=== PATIENT | female | born 1960 | race Caucasian/White ===

== ENCOUNTER 2023-06-06 10:31 | Outpatient (CLI) | payer MEDICAID ==
--- NOTE | 2023-06-06 13:29 | XRAY Report ---
PROCEDURE: Shoulder 2+V LT INDICATIONS: PAIN IN LEFT SHOULDER TECHNIQUE: 3 views of the shoulder were acquired. COMPARISON: None. FINDINGS: Bones: No fractures or dislocations. No suspicious bony lesions. Visualized ribs appear intact. Severe acromioclavicular as well as moderate glenohumeral degenerative narrowing. Mild deformity is p resent in the humeral shaft. In addition, there is a mildly displaced fracture at the humeral head. Soft tissues: No suspicious soft tissue calcifications. The visualized lungs are within normal limi ts. IMPRESSION: Mildly displaced humeral head fracture without dislocation. Partially visualized deformity of the mid humerus suspected to represent prior fracture. However, sup erimposed subacute fracture cannot be excluded as it is not seen in mesentery. Humeral views are bob mmended. Reviewed by: Rasheeda Islas MD on 06/06/2023 1:27 PM PST Approved by: Rasheeda Islas MD on 06/06/2023 1:27 PM [facility] Station ID: [id number]
== END 2023-06-06 10:32 | disposition home or self-care (01) ==
LOC: DI.N 10:31
PROVIDERS: ATTEND Specialist
DX: S42.292A Other displaced fracture of upper end of left humerus, initial encounter for closed fracture (principal)

== ENCOUNTER 2023-07-05 08:00 | Outpatient (CLI) | payer MEDICAID ==
--- NOTE | 2023-07-05 19:50 | XRAY Report ---
PROCEDURE: Shoulder 3 View LT INDICATIONS: LEFT SHOULDER PAIN TECHNIQUE: 3 views of the shoulder were acquired. COMPARISON: 06/06/2023. FINDINGS: Bones: Chronic-appearing deformity involving proximal humeral shaft/surgical neck is again seen. Old healed fracture involving the mid humeral shaft is also noted. Moderate acromioclavicular joint and glenohumeral joint osteoarthritic changes are seen. No new fracture or dislocation. No suspicious bon y lesions. Visualized ribs appear intact. Soft tissues: No suspicious soft tissue calcifications. The visualized lungs are within normal limi ts. IMPRESSION: Stable appearance of old healed proximal and mid humeral shaft fractures as above. No acute fracture or dislocation. 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 Reviewed by: Manuel Grimaldo MD on 07/05/2023 7:49 PM PDT Approved by: Manuel Grimaldo MD on 07/05/2023 7:49 PM PDT Station ID: [id number]
== END 2023-07-05 23:59 | disposition home or self-care (01) ==
LOC: DI.WOS 08:00
PROVIDERS: ATTEND Orthopaedic Surgery
DX: M19.012 Primary osteoarthritis, left shoulder (principal)

== ENCOUNTER 2023-11-02 15:30 | Outpatient (CLI) | payer MEDICAID ==
--- NOTE | 2023-11-02 17:31 | XRAY Report ---
PROCEDURE: Wrist 3+V LT INDICATIONS: WRIST SPRAIN, LEFT TECHNIQUE: 4 views of the wrist were acquired. COMPARISON: None. FINDINGS: Bones: Impacted fracture involving distal radius is seen with minimal dorsal angulation and displace ment of fracture site. No other fracture or dislocation. Osteoarthritic changes are noted throughout wrist joints. No suspicious bony lesions. Soft tissues: No suspicious soft tissue calcifications or masses. IMPRESSION: Acute impacted and minimally displaced distal radial fracture as above. Reviewed by: Manuel Hopper MD on 11/02/2023 5:30 PM PDT Approved by: Manuel Hopper MD on 11/02/2023 5:30 PM PDT Station ID: [id number]
== END 2023-11-02 15:45 | disposition home or self-care (01) ==
LOC: DI.N 15:30
PROVIDERS: ATTEND Family Medicine
DX: S52.502A Unspecified fracture of the lower end of left radius, initial encounter for closed fracture (principal); M19.032 Primary osteoarthritis, left wrist

== ENCOUNTER 2023-11-13 14:22 | Outpatient (CLI) | payer MEDICAID | END 2023-11-13 23:59 | disposition critical access hospital (66) | LOC: EMS 14:22 | DX: M54.50 Low back pain, unspecified (principal); M25.551 Pain in right hip; M25.552 Pain in left hip; W18.30XA Fall on same level, unspecified, initial encounter; R53.1 Weakness; Z96.642 Presence of left artificial hip joint ==

== ENCOUNTER 2023-11-13 15:08 | Observation (INO) | payer MEDICAID ==
--- NOTE | 2023-11-13 15:57 | ED Physician Documentation ---
History of Present Illness - Stated complaint Stated Complaint: FALL/ARM AND TAILBONE PX - Chief complaint Chief Complaint: Trauma Ch/Bk - Additonal information Additional information: Per son in law she was walking to the bathroom and fell on her left side. She was reporting persistent low back pain today, but today was unable to ambulate. Fracture to left wrist last week with distal radius fracture. This imaging was obtained when they took her to urgent care. Patient was following up with orthopedics in outpatient setting. Son-in-law notes patient has been living with him after she fell a year ago and fractured her left hip then went to rehab facility and now currently lives with him at his house. He notes he is unable to come to the emergency department. Patient has history of dementia that they are currently working up as well as history of stroke while she was in the rehab facility. Patient is not on any blood thinners. SHe fell one year ago and fractured her left hip went to rehab facility. PD PAST MEDICAL HISTORY - Past Medical History Past Medical History: Yes Cardiovascular: Hypertension - Past Surgical History Past Surgical History: Yes Ortho: Hip replacement - Allergies Allergies/Adverse Reactions: Allergies Allergy/AdvReac Type Severity Reaction Status Date / Time No Known Drug Allergies Allergy Verified 11/13/23 15:19 - Social History Does the pt smoke?: No Smoking Status: Never smoker Does the pt drink ETOH?: No Does the pt have substance abuse?: No - Immunizations Immunizations are current?: Yes PD ED PE NORMAL - Vitals Vital signs reviewed: Yes - General General: No acute distress - HEENT HEENT: Atraumatic, PERRL, Ears normal, Moist mucous membranes - Neck Neck: Supple, no meningeal sign, C-Spine cleared by NEXUS criteria - Cardiac Cardiac: RRR, No murmur, No gallop, No rub - Respiratory Respiratory: No respiratory distress, Clear bilaterally - Abdomen Abdomen: Normal bowel sounds - Back Back: Other (Reproducible lumbar and sacral spinous process tenderness no obvious deformity or appreciable bruising or swelling noted.) - Derm Derm: Normal color - Extremities Extremities: No deformity, Other (Left wrist held in Velcro wrist splint additionally pain on palpation of left humerus but no obvious bruising or deformity or swelling noted. Additionally left lateral hip tenderness flexion of left knee intact.sensation intact distally no obvious swelling no obvious deformity passive range of mohamud) - Neuro Neuro: No sensory deficit Eye Opening: Spontaneous Motor: Obeys Commands Verbal: Confused GCS Score: 14 Results - Vitals Vitals: Vital Signs - 24 hr 11/13/23 11/13/23 11/13/23 15:23 15:30 15:33 Temperature 36.2 C L Heart Rate 66 66 66 Respiratory 16 23 24 Rate Blood Pressure 117/73 131/78 H 131/78 H O2 Saturation 97 95 96 11/13/23 11/13/23 17:30 19:00 Temperature Heart Rate 71 68 Respiratory 16 17 Rate Blood Pressure 169/109 H 165/105 H O2 Saturation 96 97 Oxygen O2 Source Room air PD Medical Decision Making - ED course Complexity details: reviewed old records, reviewed results, re-evaluated patient ED course: Patient is a 63-year-old female presenting to the emergency department with persistent low back pain and difficulty walking after she had a fall at home last night patient was at son-in-law's house has not been taking care of her after being discharged from rehab facility after stroke and left hip arthroplasty. Patient reports pain to left back left hip and left humerus patient did sustain fracture to left radius after a fall about a week ago. X-ray images and CT head obtained here in the emergency department x-ray of left humerus does show partially healing humerus shaft and head fracture additionally no acute fracture to left hip or obvious deformity. X-ray of lumbar and sacrum shows fracture to T11 but no other obvious deformity. Patient remains neurovascularly intact on reevaluation to lower extremities. Patient ambulated here in the emergency department and required assistance and had severe bout of pain after walking 6 steps and after receiving [place] here in the emergency department. Given the symptoms patient does not seem safe to be discharged home. CT head did show no acute findings. Discussed with orthopedics at [facility] [address] Borden and she recommends sling she does not consult on spine fractures and notes she did not take call at our hospital. Discussed with hospitalist who is agreeable with admission left arm in sling and Velcro splint from history of radial fracture and humerus fracture patient's son-in-law called and updated. Patient will be monitored overnight in the hospital. Departure - Departure Disposition: 67 [facility] DC/Xfer Clinical Impression: Thoracic compression fracture, Humeral shaft fracture, Left hip pain Discharge Date/Time: 11/13/23 21:19
--- NOTE | 2023-11-13 16:58 | XRAY Report ---
PROCEDURE: Lumbar Spine 2-3V INDICATIONS: lower back pain from fall TECHNIQUE: 3 views of the lumbar spine were acquired. COMPARISON: None. FINDINGS: Surgical change: Cholecystectomy. Left hip ORIF. Bones: 5 [id number] vertebrae are present. There is normal bony alignment. Age-indeterminate co mpression deformity of the T11 vertebral body. Soft tissues: Overlying bowel gas pattern is normal. No suspicious soft tissue calcifications. IMPRESSION: Age-indeterminate compression deformity of the T11 vertebral body. Reviewed by: Derek Villalobos MD on 11/13/2023 4:57 PM PDT Approved by: Derek Villalobos MD on 11/13/2023 4:57 PM PDT Station ID: [id number]
--- NOTE | 2023-11-13 16:58 | XRAY Report ---
PROCEDURE: Sacrum/Coccyx INDICATIONS: fall back pain TECHNIQUE: 2 views of the sacrum and coccyx acquired. COMPARISON: None. FINDINGS: Bones: No fractures or dislocations. No suspicious bony lesions. Left total hip ORIF. Soft tissues: Visualized bowel gas pattern is normal. No suspicious soft tissue densities. IMPRESSION: No acute bony abnormality. Reviewed by: Derek Villalobos MD on 11/13/2023 4:57 PM PDT Approved by: Derek Villalobos MD on 11/13/2023 4:57 PM PDT Station ID: [id number]
[2023-11-13] MEDS: HYDROcod/ACETAM 5/325 MG TABLET PO STA (17:25)
--- NOTE | 2023-11-13 18:21 | CT Report ---
PROCEDURE: Head WO INDICATIONS: fall at home TECHNIQUE: Noncontrast 4.5 mm thick angled axial sections acquired from the foramen magnum to the vertex. For r adiation dose reduction, the following was used: automated exposure control, adjustment of mA and/or kV according to patient size. COMPARISON: None. FINDINGS: Image quality: Excellent. CSF spaces: Basal cisterns are patent. No extra-axial fluid collections. Ventricles are normal in size and shape. Brain: No midline shift. No intracranial masses or hemorrhage. Tolbert-white matter interface is norm al. Skull and face: Calvarium and visualized facial bones are intact, without suspicious lesions. Sinuses: Visualized sinuses and mastoids are clear. IMPRESSION: No acute intracranial pathology. Reviewed by: Derek Villalobos MD on 11/13/2023 6:20 PM PDT Approved by: Derek Villalobos MD on 11/13/2023 6:20 PM PDT Station ID: [id number]
--- NOTE | 2023-11-13 18:28 | XRAY Report ---
PROCEDURE: Shoulder 2+V LT INDICATIONS: left shoulder pain TECHNIQUE: 3 views of the shoulder were acquired. COMPARISON: 07/05/2023, 06/06/2023 FINDINGS: Bones: No acute fractures or dislocations. No suspicious bony lesions. Visualized ribs appear inta ct. Glenohumeral and acromioclavicular joint space narrowing with associated osteophytosis. Healing mid humerus fracture. Suspect a remote fracture of the humeral head. Soft tissues: No suspicious soft tissue calcifications. The visualized lungs are within normal limi ts. IMPRESSION: No acute bony abnormality. Healing mid humerus fracture deformity. Reviewed by: Derek Villalobos MD on 11/13/2023 6:27 PM PDT Approved by: Derek Villalobos MD on 11/13/2023 6:27 PM PDT Station ID: [id number]
--- NOTE | 2023-11-13 18:29 | XRAY Report ---
PROCEDURE: Hip w/Pelvis 2-3V LT INDICATIONS: hip pain TECHNIQUE: 3 views of the hip were acquired. COMPARISON: None. FINDINGS: Bones: Prior left femur ORIF. Suspected healing fracture of the proximal shaft. No acute, displaced fractures. Soft tissues: No suspicious soft tissue calcifications or masses. IMPRESSION: No acute, displaced fractures. Prior left femur ORIF, with a healing proximal shaft fracture. Reviewed by: Derek Villalobos MD on 11/13/2023 6:28 PM PDT Approved by: Derek Villalobos MD on 11/13/2023 6:28 PM PDT Station ID: [id number]
--- NOTE | 2023-11-13 19:54 | HISTORY & PHYSICAL EXAMINATION ---
Chief Complaint - Chief Complaint Chief Complaint: LBP History of Present Illness - Admitted From Admitted From:: ER - History Obtained From Records Reviewed: Yes History obtained from: Pt, staff, chart Exam Limitations: Virtual exam - History of Present Illness HPI Comment/Other: H&P was conducted via video remotely, using Access Cart. Patient is in [place]. Physician is in [place]. No one is at bedside. Pt has poor memory. History from pt, staff, chart. 63 yo F with PMH of HTN, CVA, memory deficits presented to the ER with c/o 1 day h/o LBP s/p GLF. [place] Pt has had frequent falls. Last year, she fell and fractured her hip, had ORIF, then went to Rehab. Pt was seen last week after a fall and found to have a fracture L wrist. Pt says that she uses a walker at home. Unclear whether she is still using walker with L wrist fracture. Unclear if she was seen for L Humeral fracture, or not. Last night, she got up to go to the bathroom, fell, and had back pain. Today, she was unable to ambulate d/t LBP. Pt denies F/c, cough, SOB, CP, abdo pain, dysuria, BM or urinary changes. In the ER, LSpine Xray: compression fracture T11 vertebra L Hip Xray: +ORIF; no acute injury L Shoulder Xray: healing mid-humeral fracture CT Head: NAD No labs done. Pt was given [place] in the ER. ER Provider D/W Orthopedics at [place] [place] Dr[facility] Borden and she recommends sling she does not consult on spine fractures and notes she did not take call at our hospital. History - Past Medical History Cardiovascular: reports: Hypertension - Past Surgical History Ortho: reports: Hip replacement Meds/Allgy - Allergies Allergies/Adverse Reactions: Allergies Allergy/AdvReac Type Severity Reaction Status Date / Time No Known Drug Allergies Allergy Verified 11/13/23 15:19 Review of Systems - All Other Systems All Other Systems: reports: Reviewed and negative Exam - Vital Signs Reviewed Vital Signs: Yes Vital Signs: Vital Signs x48h Temp Pulse Resp BP Pulse Ox 11/13/23 19:00 68 17 165/105 H 97 11/13/23 17:30 71 16 169/109 H 96 11/13/23 15:33 66 24 131/78 H 96 11/13/23 15:30 66 23 131/78 H 95 11/13/23 15:23 36.2 C L 66 16 117/73 97 - Physical Exam General Appearance: positive: No acute distress, Alert Eyes Bilateral: positive: EOMI, No scleral icterus Respiratory: positive: Other (Access cart stethoscope not working; per ER Provider: CTA B/L) Cardiovascular: positive: Other (Access cart stethoscope not working; per ER Provider: RRR, no murmurs) Abdomen: positive: Other (per ER Provider: non-distended, NT, Soft) Back: positive: Other (+TTP) Extremities: positive: Other (per ER Provider: moves all extrem, no edema, +pain L wrist, L shoulder) Neurologic/Psychiatric: positive: Oriented x3, Mood/affect nml, Other (Ox3, but +decreased short-term memory) Conclusion/Plan - Problem List (1) Compression fracture of T11 vertebra Conclusion/Plan: T11 Compression Fracture Intractable pain Decreased ability to walk d/t pain S/P GLF Frequent Falls -uses walker at baseline -LSpine Xray: compression fracture T11 vertebra -L Hip Xray: +ORIF; no acute injury -CT Head: NAD -No labs done. -Pt was given [place] in the ER. -admit to Obs/ Med Surg -labs ordered -pain control -PT/OT eval -SW consult; pt may need SNF placement. L Humeral Fracture -L Shoulder Xray: healing mid-humeral fracture -ER Provider D/W Orthopedics at [place] Dr[facility] Borden and she recommends sling she does not consult on spine fractures and notes she did not take call at our hospital. -sling placement ordered in ER. L Wrist Fracture -Recent L wrist Xray 11/02/23: L distal radius fracture -continue outpt Ortho F/U HTN CVA Memory deficits -no home medications reported so far -pt has F/U with outpt Neurologist VTE Prophylaxis: Heparin SQ Code Status: Full Code ~Stephanie Zelaya MD Hospitalist - Lab Results Lab results reviewed: Yes
[2023-11-13] MEDS ORDERED: ONDANSETRON 4 MG/2 ML VIAL IVP PRN (20:03)
[2023-11-13] MEDS ORDERED: SODIUM CHLORIDE FLUSH 0.9% 10 ML SYRINGE IVP PRN (20:03)
[2023-11-13] MEDS ORDERED: ONDANSETRON ODT 4 MG TABLET TL PRN (20:03)
[2023-11-13 20:36] LABS: BASOPHILS # (AUTO) 0.1 10^3/uL (0.0-0.1); BASOPHILS % (AUTO) 0.5 %; EOSINOPHILS # (AUTO) 0.1 10^3/uL (0.0-0.7); EOSINOPHILS % (AUTO) 0.6 %; HCT - HEMATOCRIT 29.1 % (37.0-47.0); HGB - HEMOGLOBIN 8.7 g/dL (12.0-16.0); LYMPHOCYTES # (AUTO) 2.3 10^3/uL (1.5-3.5); LYMPHOCYTES % (AUTO) 22.2 %; MEAN CORPUSCULAR HEMOGLOBIN 27.7 pg (27.0-31.0); MEAN CORPUSCULAR HGB CONC 29.9 g/dL (32.0-36.0); MEAN CORPUSCULAR VOLUME 92.7 fL (81.0-99.0); MEAN PLATELET VOLUME 9.2 fL (7.9-10.8); MONOCYTES # (AUTO) 1.2 10^3/uL (0.0-1.0); MONOCYTES % (AUTO) 11.1 %; NEUTROPHILS # (AUTO) 6.9 10^3/uL (1.5-6.6); NEUTROPHILS % (AUTO) 65.2 %; PLT - PLATELET COUNT 399 10^3/uL (130-450); RED BLOOD COUNT 3.14 10^6/uL (4.20-5.40); RED CELL DISTRIBUTION WIDTH 14.9 % (12.0-15.0); WHITE BLOOD COUNT 10.5 x10^3/uL (4.8-10.8)
[2023-11-13] MEDS: ACETAMINOPHEN 325 MG TABLET PO PRN (20:41)
[2023-11-13 20:48] LABS: ALBUMIN 4.1 g/dL (3.2-5.5); ALBUMIN/GLOBULIN RATIO 1.5 (1.0-2.2); BILIRUBIN,TOTAL 0.3 mg/dL (0.2-1.0); CALCIUM 9.3 mg/dL (8.5-10.3); CREATININE 0.4 mg/dL (0.6-1.3); POTASSIUM 2.9 mmol/L (3.5-4.5); TOTAL PROTEIN 6.8 g/dL (6.4-8.9)
[2023-11-13] MEDS: HEPARIN 5,000 UNIT/ML VIAL SUBQ SCH (22:21)
[2023-11-13] MEDS ORDERED: POTASSIUM CHLOR 10 MEQ/100 ML 10 MEQ/100 ML BAG IV ONE (22:29)
[2023-11-13] MEDS: POTASSIUM CHLORIDE 20 MEQ TABLET PO ONE (22:54)
[2023-11-13] MEDS: POTASSIUM CHLOR 10 MEQ/100 ML 10 MEQ/100 ML BAG IV ONE (23:05)
[2023-11-13] MEDS: oxyCODONE 5 MG TABLET PO PRN (23:11)
[2023-11-13] MEDS: MORPHINE 2 MG/ML CARPUJECT IVP PRN (23:57)
[2023-11-13] MEDS: SODIUM CHLORIDE FLUSH 0.9% 10 ML SYRINGE IVP SCH (23:58)
[2023-11-14 05:38] LABS: BILIRUBIN,URINE NEGATIVE (NEGATIVE); GLUCOSE, URINE (UA) NEGATIVE (NEGATIVE); KETONES,URINE (UA) 15 mg/dL (NEGATIVE); LEUKOCYTE ESTERASE, URINE SMALL (NEGATIVE); NITRITE,URINE NEGATIVE (NEGATIVE); OCCULT BLOOD,URINE NEGATIVE (NEGATIVE); PROTEIN,URINE NEGATIVE (NEGATIVE); UROBILINOGEN,URINE 1 (NORMAL) E.U./dL (NORMAL)
[2023-11-14 05:39] LABS: CLARITY,URINE HAZY (CLEAR)
[2023-11-14 05:45] LABS: RBC,URINE 0-5 /HPF (0-5); SQUAMOUS EPITHELIAL CELL,UR MANY Squamous (<= Few)
[2023-11-14 05:46] LABS: BACTERIA,URINE Many /HPF (None Seen)
[2023-11-14 05:51] LABS: BASOPHILS # (AUTO) 0.1 10^3/uL (0.0-0.1); BASOPHILS % (AUTO) 0.6 %; EOSINOPHILS # (AUTO) 0.1 10^3/uL (0.0-0.7); HCT - HEMATOCRIT 26.7 % (37.0-47.0); HGB - HEMOGLOBIN 8.1 g/dL (12.0-16.0); LYMPHOCYTES % (AUTO) 25.2 %; MEAN CORPUSCULAR HGB CONC 30.3 g/dL (32.0-36.0); MEAN CORPUSCULAR VOLUME 92.4 fL (81.0-99.0); MEAN PLATELET VOLUME 9.2 fL (7.9-10.8); MONOCYTES % (AUTO) 12.2 %; NEUTROPHILS # (AUTO) 4.8 10^3/uL (1.5-6.6); NEUTROPHILS % (AUTO) 60.6 %; PLT - PLATELET COUNT 366 10^3/uL (130-450); RED BLOOD COUNT 2.89 10^6/uL (4.20-5.40); RED CELL DISTRIBUTION WIDTH 14.9 % (12.0-15.0); WHITE BLOOD COUNT 7.9 x10^3/uL (4.8-10.8)
[2023-11-14 06:09] LABS: CREATININE 0.4 mg/dL (0.6-1.3); POTASSIUM 3.4 mmol/L (3.5-4.5)
--- NOTE | 2023-11-14 07:24 | PROVIDER PROGRESS NOTE ---
Subjective - Prog Note Date Prog Note Date: 11/14/23 Prog Note Time: 07:24 - Subjective Pt reports feeling: Improved Subjective: Patient was seen briefly this morning and then again this afternoon. 63-year-old female with hypertension status post CVA with memory deficits presented to the ED with history of frequent falls fractured her left wrist about a week ago in any event fell and had back pain which led to her admission. It is unclear when it was that she had a fall resulting in a left humeral fracture. She did have a left wrist fracture previous to this. She has otherwise been at her baseline level of health.She denies any substance use related to the fall. ED provider discussed the midshaft humeral fracture with orthopedic surgeon at [facility] and sling was recommended. Thoracic fracture was not commented upon. Current Medications - Current Medications Current Medications: Medications Acetaminophen (Acetaminophen 325 Mg Tablet) 650 mg PO Q4HR PRN PRN Reason: Pain 1 to 4, or Fever Last Admin: 11/14/23 16:15 Dose: 650 mg Heparin Sodium (Porcine) (Heparin 5,000 Unit/Ml Vial) 5,000 unit SUBQ BID CARYL Last Admin: 11/14/23 09:56 Dose: 5,000 unit Morphine Sulfate (Morphine 2 Mg/Ml Carpuject) 2 mg IVP Q4HR PRN PRN Reason: Pain 8 to 10 Last Admin: 11/14/23 09:47 Dose: 2 mg Ondansetron HCl (Ondansetron Odt 4 Mg Tablet) 4 mg TL Q6HR PRN PRN Reason: Nausea / Vomiting Oxycodone HCl (Oxycodone 5 Mg Tablet) 5 mg PO Q4HR PRN PRN Reason: Pain 5 to 7 Last Admin: 11/14/23 16:15 Dose: 5 mg Objective - Vital Signs/Intake & Output Reviewed Vital Signs: Yes Vital Signs: Vital Signs x48h Temp Pulse Resp BP Pulse Ox 11/14/23 05:38 36.7 C 84 20 146/81 H 93 11/13/23 23:58 36.9 C 79 18 150/89 H 93 Intake & Output: Intake & Output 11/11/23 11/12/23 11/13/23 11/14/23 23:59 23:59 23:59 23:59 Intake Total 150 Output Total 100 Balance 50 - Objective General Appearance: positive: No acute distress, Alert Eyes Bilateral: positive: Normal inspection ENT: positive: ENT inspection nml, No signs of dehydration Neck: positive: Nml inspection Respiratory: positive: Chest non-tender, Breath sounds nml Cardiovascular: positive: Regular rate & rhythm Abdomen: positive: Non-tender, No distention Back: positive: Nml inspection, Other (no midline tenderness on exam.) Skin: positive: Color nml Extremities: positive: Other (able to lift bilateral lower extremities off the bed. left lower extremity with inability to flex/extend ankle. She states that this is chronic. tenderness of the left upper arm, no ecchymosis. There is edema mild edema of the left hand. patient is in a splint to the left lower arm and wrist.) Neurologic/Psychiatric: positive: Oriented x3, CN's nml (2-12), Other (she is able to move the fingers of her left hand, but she seems to have some chronic contractures of the left hand.) - Lab Results Fish Bones: 11/14/23 05:36 11/14/23 05:36 Other Labs: Lab Results x24hrs 11/14/23 11/14/23 11/14/23 Range/Units 05:36 05:36 05:20 WBC 7.9 (4.8-10.8) x10^3/uL RBC 2.89 L (4.20-5.40) 10^6/uL Hgb 8.1 L (12.0-16.0) g/dL Hct 26.7 L (37.0-47.0) % MCV 92.4 (81.0-99.0) fL MCH 28.0 (27.0-31.0) pg MCHC 30.3 L (32.0-36.0) g/dL RDW 14.9 (12.0-15.0) % Plt Count 366 (130-450) 10^3/uL MPV 9.2 (7.9-10.8) fL Neut # (Auto) 4.8 (1.5-6.6) 10^3/uL Lymph # (Auto) 2.0 (1.5-3.5) 10^3/uL [place] # (Auto) 1.0 (0.0-1.0) 10^3/uL Eos # (Auto) 0.1 (0.0-0.7) 10^3/uL Baso # (Auto) 0.1 (0.0-0.1) 10^3/uL Absolute Nucleated RBC 0.00 x10^3/uL Nucleated RBC % 0.0 /100WBC Sodium 141 (135-145) mmol/L Potassium 3.4 L (3.5-4.5) mmol/L Chloride 106 (101-111) mmol/L Carbon Dioxide 28 (21-32) mmol/L Anion Gap 7.0 (6-13) BUN 14 (6-20) mg/dL Creatinine 0.4 L (0.6-1.3) mg/dL Estimated GFR (MDRD) 162 (>89) Glucose 83 (74-104) mg/dL Calcium 9.0 (8.5-10.3) mg/dL Iron 12 L (50-212) ug/dL TIBC 363 (250-450) ug/dL % Saturation 3 L (20-50) % Transferrin 259 (203-362) mg/dL Total Bilirubin (0.2-1.0) mg/dL AST (10-42) IU/L ALT (10-60) IU/L Alkaline Phosphatase (42-121) IU/L Total Protein (6.4-8.9) g/dL Albumin (3.2-5.5) g/dL Globulin (2.1-4.2) g/dL Albumin/Globulin Ratio (1.0-2.2) Vitamin B12 254 (180-914) pg/mL Folate 16.5 (5.90 - >24.8) ng/mL Urine Color YELLOW Urine Clarity HAZY (CLEAR) Urine pH 6.0 (5.0-7.5) PH Ur Specific [place] >=1.030 H (1.002-1.030) Urine Protein NEGATIVE (NEGATIVE) mg/dL Urine Glucose (UA) NEGATIVE (NEGATIVE) mg/dL Urine Ketones 15 H (NEGATIVE) mg/dL Urine Occult Blood NEGATIVE (NEGATIVE) Urine Nitrite NEGATIVE (NEGATIVE) Urine Bilirubin NEGATIVE (NEGATIVE) Urine Urobilinogen 1 (NORMAL) (NORMAL) E.U./dL Ur Leukocyte Esterase SMALL H (NEGATIVE) Urine RBC 0-5 (0-5) /HPF Urine WBC 11-25 H (0-5) /HPF Ur Squamous Epith Cells MANY Squamous H (<= Few) Urine Bacteria Many H (None Seen) /HPF Urine Culture Comments NOT INDICATED 11/13/23 11/13/23 Range/Units 20:31 20:31 WBC 10.5 (4.8-10.8) x10^3/uL RBC 3.14 L (4.20-5.40) 10^6/uL Hgb 8.7 L (12.0-16.0) g/dL Hct 29.1 L (37.0-47.0) % MCV 92.7 (81.0-99.0) fL MCH 27.7 (27.0-31.0) pg MCHC 29.9 L (32.0-36.0) g/dL RDW 14.9 (12.0-15.0) % Plt Count 399 (130-450) 10^3/uL MPV 9.2 (7.9-10.8) fL Neut # (Auto) 6.9 H (1.5-6.6) 10^3/uL Lymph # (Auto) 2.3 (1.5-3.5) 10^3/uL [place] # (Auto) 1.2 H (0.0-1.0) 10^3/uL Eos # (Auto) 0.1 (0.0-0.7) 10^3/uL Baso # (Auto) 0.1 (0.0-0.1) 10^3/uL Absolute Nucleated RBC 0.00 x10^3/uL Nucleated RBC % 0.0 /100WBC Sodium 141 (135-145) mmol/L Potassium 2.9 L (3.5-4.5) mmol/L Chloride 103 (101-111) mmol/L Carbon Dioxide 32 (21-32) mmol/L Anion Gap 6.0 (6-13) BUN 16 (6-20) mg/dL Creatinine 0.4 L (0.6-1.3) mg/dL Estimated GFR (MDRD) 162 (>89) Glucose 88 (74-104) mg/dL Calcium 9.3 (8.5-10.3) mg/dL Iron (50-212) ug/dL TIBC (250-450) ug/dL % Saturation (20-50) % Transferrin (203-362) mg/dL Total Bilirubin 0.3 (0.2-1.0) mg/dL AST 13 (10-42) IU/L ALT 7 L (10-60) IU/L Alkaline Phosphatase 91 (42-121) IU/L Total Protein 6.8 (6.4-8.9) g/dL Albumin 4.1 (3.2-5.5) g/dL Globulin 2.7 (2.1-4.2) g/dL Albumin/Globulin Ratio 1.5 (1.0-2.2) Vitamin B12 (180-914) pg/mL Folate (5.90 - >24.8) ng/mL Urine Color Urine Clarity (CLEAR) Urine pH (5.0-7.5) PH Ur Specific [place] (1.002-1.030) Urine Protein (NEGATIVE) mg/dL Urine Glucose (UA) (NEGATIVE) mg/dL Urine Ketones (NEGATIVE) mg/dL Urine Occult Blood (NEGATIVE) Urine Nitrite (NEGATIVE) Urine Bilirubin (NEGATIVE) Urine Urobilinogen (NORMAL) E.U./dL Ur Leukocyte Esterase (NEGATIVE) Urine RBC (0-5) /HPF Urine WBC (0-5) /HPF Ur Squamous Epith Cells (<= Few) Urine Bacteria (None Seen) /HPF Urine Culture Comments - Diagnostic Imaging Diagnostic Imaging Results: positive: Final report reviewed, Read independently Diagnostic Imaging Comments: Thoracic spine CT. age indeterminate T7 and T11 compression fractures. no retropulsion. ABX Reporting Has patient been on IV antibiotics over the past 48 hours?: No Assessment/Plan - Problem List (1) Compression fracture of T11 vertebra Impression: CT of the thoracic spine obtained today. There are T7 and T11 compression fractures of indeterminate age. There are no retropulsed fragments within the canal. Patient appears to have some chronic neurological deficits. She does not have any urinary retention she is not having urinary incontinence. She is able to move her lower extremities. She does have back pain which is controlled with medications. She has not yet worked with physical therapy I have asked that the films be pushed to [facility] and have requested to speak with an orthopedic finance specialist. (2) Humeral shaft fracture Impression: This does not appear to be an acute fracture. I have reviewed the films going back to May 2023. Humeral fracture has been present since that since that time. There is definitely callus formation seen at the humerus (3) Status post CVA Impression: Review of medical records show that the patient moved here in early 2023. It would seem that she had sustained a left hip fracture and left humeral fracture prior to that time possibly in [place]. She moved here to have more support from her family. It is not clear what the timeframe for her CVA was. CT of the head shows no acute intracranial pathology I do not see any large areas of encephalomalacia upon reviewing the films myself. 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 It appears that she fractured her left wrist and her left humerus in May 2023 per review of records. There are multiple urgent care visits related to falls. (4) Mildly underweight adult Impression: BMI is calculated to be 19.8. She is not taking in much of her meals here. She appears quite thin. I question the accuracy of this weight.
--- NOTE | 2023-11-14 12:36 | PHARMACY PROGRESS NOTE ---
- Best Possible Medication History Admit Date and Time: 11/13/232002 Processed by: Pharmacy Medication History completed: Yes Patient Interview: Pt unable to participate Secondary Source(s): Other family member, Pharmacy records, Insurance records (Insurance records, [facility] records, and proxy interview (son-in-law) all resources for medication reconciliation) As the person ultimately responsible for medication therapy, providers are able to order a medication from an existing home medication list in [facility] via the "Reconcile Routine" prior to Confirmation of that medication by account support analyst. Such practice is discouraged except when the physician, in their clinical judgment, deems that a medical need exists for a medication without regard to previous use.
[2023-11-14 13:35] LABS: BILIRUBIN,URINE NEGATIVE (NEGATIVE); GLUCOSE, URINE (UA) NEGATIVE (NEGATIVE); KETONES,URINE (UA) 15 mg/dL (NEGATIVE); LEUKOCYTE ESTERASE, URINE NEGATIVE (NEGATIVE); NITRITE,URINE NEGATIVE (NEGATIVE); OCCULT BLOOD,URINE NEGATIVE (NEGATIVE); PH,URINE 5.5 PH (5.0-7.5); PROTEIN,URINE NEGATIVE (NEGATIVE); UROBILINOGEN,URINE 1 (NORMAL) E.U./dL (NORMAL)
[2023-11-14 13:38] LABS: CLARITY,URINE HAZY (CLEAR)
[2023-11-14 14:11] LABS: BACTERIA,URINE Many /HPF (None Seen); RBC,URINE 0-5 /HPF (0-5); SQUAMOUS EPITHELIAL CELL,UR FEW Squamous (<= Few); WBC,URINE 0-3 /HPF (0-5)
--- NOTE | 2023-11-14 15:16 | CT Report ---
PROCEDURE: Thoracic Spine WO INDICATIONS: T 11 compression fracture TECHNIQUE: Noncontrast 3 mm thick sections acquired through the region of interest in the thoracic spine. Sagit crystal and coronal reformats were then constructed. For radiation dose reduction, the following was used : automated exposure control, adjustment of mA and/or kV according to patient size. COMPARISON: None. FINDINGS: Image quality: Excellent. Bones: There is normal overall bony alignment. T7 and T11 wedge-shaped compression fractures are not ed with 90% anterior height loss at T7 and 60% height loss at T11. No retropulsed fracture fragment. Normal bone mineralization present. There is appropriate vertebral alignment. No suspicious sclerotic or lytic bony lesions. Central spinal canal is of normal overall caliber. Soft tissues: No paravertebral masses or hematomas. Visualized posteromedial lungs appear clear. I ncidental moderate hiatal hernia IMPRESSION: T7 and T11 compression fractures, uncertain age Incidental moderate hiatal hernia noted. Cholecystectomy. Reviewed by: Gokul Anne MD on 11/14/2023 2:15 PM AKDT Approved by: Gokul Anne MD on 11/14/2023 2:15 PM AKDT Station ID: [id number]
[2023-11-14] MEDS: BACLOFEN 10 MG TABLET PO PRN (19:09)
[2023-11-14] MEDS: PROPRANOLOL 10 MG TABLET PO SCH (20:14)
[2023-11-14] MEDS: QUEtiapine 25 MG TABLET PO SCH (20:14)
[2023-11-14] MEDS: rOPINIRole 1 MG TABLET PO SCH (20:14)
[2023-11-15] MEDS: OLANZapine 10 MG VIAL IM PRN (01:59)
[2023-11-15 06:06] LABS: BASOPHILS # (AUTO) 0.1 10^3/uL (0.0-0.1); BASOPHILS % (AUTO) 0.5 %; EOSINOPHILS # (AUTO) 0.1 10^3/uL (0.0-0.7); EOSINOPHILS % (AUTO) 1.3 %; HCT - HEMATOCRIT 25.7 % (37.0-47.0); MEAN CORPUSCULAR HEMOGLOBIN 28.6 pg (27.0-31.0); MEAN CORPUSCULAR HGB CONC 31.1 g/dL (32.0-36.0); MEAN CORPUSCULAR VOLUME 91.8 fL (81.0-99.0); MEAN PLATELET VOLUME 9.5 fL (7.9-10.8); MONOCYTES % (AUTO) 10.3 %; NEUTROPHILS # (AUTO) 6.5 10^3/uL (1.5-6.6); NEUTROPHILS % (AUTO) 66.5 %; PLT - PLATELET COUNT 375 10^3/uL (130-450); RED CELL DISTRIBUTION WIDTH 14.9 % (12.0-15.0); WHITE BLOOD COUNT 9.7 x10^3/uL (4.8-10.8)
[2023-11-15 06:12] LABS: CREATININE 0.5 mg/dL (0.6-1.3); POTASSIUM 2.9 mmol/L (3.5-4.5)
--- NOTE | 2023-11-15 08:48 | PROVIDER PROGRESS NOTE ---
Subjective - Prog Note Date Prog Note Date: 11/15/23 Prog Note Time: 08:46 - Subjective Pt reports feeling: No change Subjective: She had difficulty overnight with hallucinations and was given Zyprexa IM by telehealth . She remains sedated this morning and did not wake up until midmorning. She ate breakfast and then went right back to sleep. She was unable to work with PT. She is more awake and alert this afternoon. She is oriented to person place time and situation. She complains of pain in her left wrist. Current Medications - Current Medications Current Medications: Medications Propranolol HCl (Propranolol 10 Mg Tablet) 20 mg PO BID [facility] Last Admin: 11/14/23 20:14 Dose: 20 mg Heparin Sodium (Porcine) (Heparin 5,000 Unit/Ml Vial) 5,000 unit SUBQ BID [facility] Last Admin: 11/14/23 20:16 Dose: 5,000 unit Morphine Sulfate (Morphine 2 Mg/Ml Carpuject) 2 mg IVP Q4HR PRN PRN Reason: Pain 8 to 10 Last Admin: 11/15/23 00:56 Dose: 2 mg Olanzapine (Olanzapine 10 Mg Vial) 7.5 mg IM ONCE PRN PRN Reason: Agitation Stop: 11/16/23 01:36 Last Admin: 11/15/23 01:59 Dose: 7.5 mg Acetaminophen (Acetaminophen 325 Mg Tablet) 650 mg PO Q4HR PRN PRN Reason: Pain 1 to 4, or Fever Last Admin: 11/15/23 00:56 Dose: 650 mg Baclofen (Baclofen 10 Mg Tablet) 5 mg PO TID PRN PRN Reason: Spasms Last Admin: 11/14/23 19:09 Dose: 5 mg Ondansetron HCl (Ondansetron 4 Mg/2 Ml Vial) 4 mg IVP Q6HR PRN PRN Reason: Nausea / Vomiting Oxycodone HCl (Oxycodone 5 Mg Tablet) 5 mg PO Q4HR PRN PRN Reason: Pain 5 to 7 Last Admin: 11/15/23 03:02 Dose: 5 mg Quetiapine Fumarate (Quetiapine 25 Mg Tablet) 50 mg PO HS [facility] Last Admin: 11/14/23 20:14 Dose: 50 mg Ropinirole HCl (Ropinirole 1 Mg Tablet) 1 mg PO BID [facility] Last Admin: 11/14/23 20:14 Dose: 1 mg Venlafaxine HCl (Venlafaxine Er 75 Mg Capsule) 150 mg PO DAILY [facility] Objective - Vital Signs/Intake & Output Vital Signs: Vital Signs x48h Temp Pulse Resp BP Pulse Ox 11/15/23 08:00 37.5 C 100 20 151/84 H 91 L Intake & Output: Intake & Output 11/12/23 11/13/23 11/14/23 11/15/23 23:59 23:59 23:59 23:59 Intake Total 1208 200 Output Total 650 1200 Balance 558 -1000 - Objective General Appearance: positive: No acute distress Eyes Bilateral: positive: Normal inspection, Other (pupils unequal at baseline.) ENT: positive: ENT inspection nml Neck: positive: Nml inspection Respiratory: positive: Breath sounds nml Cardiovascular: positive: Regular rate & rhythm Abdomen: positive: Non-tender, No distention Skin: positive: Color nml Extremities: positive: Non-tender, Other (able to lift bilateral lower extremities off the bed. left lower extremity with inability to flex/extend ank le. She states that this is chronic. tenderness of the left upper arm, no ecchymosis. There is edema mild edema of the left hand. patient is in a splint to the left lower arm and wrist-) Neurologic/Psychiatric: positive: Oriented x3 - Lab Results Fish Bones: 11/15/23 05:19 11/15/23 05:19 Other Labs: Lab Results x24hrs 11/15/23 11/15/23 11/14/23 Range/Units 05:19 05:19 10:20 WBC 9.7 (4.8-10.8) x10^3/uL RBC 2.80 L (4.20-5.40) 10^6/uL Hgb 8.0 L (12.0-16.0) g/dL Hct 25.7 L (37.0-47.0) % MCV 91.8 (81.0-99.0) fL MCH 28.6 (27.0-31.0) pg MCHC 31.1 L (32.0-36.0) g/dL RDW 14.9 (12.0-15.0) % Plt Count 375 (130-450) 10^3/uL MPV 9.5 (7.9-10.8) fL Neut # (Auto) 6.5 (1.5-6.6) 10^3/uL Lymph # (Auto) 2.0 (1.5-3.5) 10^3/uL [place] # (Auto) 1.0 (0.0-1.0) 10^3/uL Eos # (Auto) 0.1 (0.0-0.7) 10^3/uL Baso # (Auto) 0.1 (0.0-0.1) 10^3/uL Absolute Nucleated RBC 0.00 x10^3/uL Nucleated RBC % 0.0 /100WBC Sodium 144 (135-145) mmol/L Potassium 2.9 L (3.5-4.5) mmol/L Chloride 106 (101-111) mmol/L Carbon Dioxide 31 (21-32) mmol/L Anion Gap 7.0 (6-13) BUN 13 (6-20) mg/dL Creatinine 0.5 L (0.6-1.3) mg/dL Estimated GFR (MDRD) 125 (>89) Glucose 88 (74-104) mg/dL Calcium 9.0 (8.5-10.3) mg/dL Urine Color DARK YELLOW Urine Clarity HAZY (CLEAR) Urine pH 5.5 (5.0-7.5) PH Ur Specific [place] >=1.030 H (1.002-1.030) Urine Protein NEGATIVE (NEGATIVE) mg/dL Urine Glucose (UA) NEGATIVE (NEGATIVE) mg/dL Urine Ketones 15 H (NEGATIVE) mg/dL Urine Occult Blood NEGATIVE (NEGATIVE) Urine Nitrite NEGATIVE (NEGATIVE) Urine Bilirubin NEGATIVE (NEGATIVE) Urine Urobilinogen 1 (NORMAL) (NORMAL) E.U./dL Ur Leukocyte Esterase NEGATIVE (NEGATIVE) Urine RBC 0-5 (0-5) /HPF Urine WBC 0-3 (0-5) /HPF Ur Squamous Epith Cells FEW Squamous (<= Few) Urine Bacteria Many H (None Seen) /HPF Urine Culture Comments NOT INDICATED Assessment/Plan - Problem List (1) Compression fracture of T11 vertebra Impression: CT of the thoracic spine shows T7 and T11 compression fractures of indeterminate age. There are no retropulsed fragments within the canal. Patient appears to have some chronic neurological deficits. She does not have any urinary retention she is not having urinary incontinence. She is urinating into a purewick catheter. She is able to move her lower extremities. She does have back pain which is controlled with medications. She is continuing to require parenteral analgesia. She has not yet worked with physical therapy. She was unable to do so due to mental status earlier today. I have asked that the films be pushed to [facility] and have requested to speak with an orthopedic protein specialist. I have called the transfer center and asked for consultation. I am awaiting a call back. (2) Humeral shaft fracture Impression: This does not appear to be an acute fracture. I have reviewed the films going back to May 2023. Humeral fracture has been present since that since that time. There is definitely callus formation seen at the humerus (3) Status post CVA Impression: Review of medical records show that the patient moved here in early 2023. It would seem that she had sustained a left hip fracture and left humeral fracture prior to that time possibly in [place]. She moved here to have more support from her family. It is not clear what the timeframe for her CVA was. CT of the head shows no acute intracranial pathology I do not see any large areas of encephalomalacia upon reviewing the films myself. 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 It appears that she fractured her left wrist and her left humerus in May 2023 per review of records. There are multiple urgent care visits related to falls. (4) Hypokalemia. Initially repleted on admission and back down to 2.9 this morning. We are replating her potassium this morning we will start her on oral potassium. She has not any medications that would cause her to be losing potassium. (5) Altered mental status Patient seems to be having some sundowning phenomena. She was given Zyprexa overnight IM which caused her to be somnolent most of the day today. We will increase her Seroquel dosing from 25 to 50 mg at at bedtime and leave a small as needed Haldol dose. (6) Mildly underweight adult Impression: BMI is calculated to be 19.8. She is not taking in much of her meals here. She appears quite thin. I question the accuracy of this weight. Disposition: This patient seems to be not thriving at home. She has had multiple falls and multiple urgent care visits related to falls. She has had multiple fractures. She tells me that there is often no one at home to be with her. For this reason I would recommend placement in a supervised living situation. I have discussed this with social work.
[2023-11-15] MEDS: VENLAFAXINE ER 75 MG CAPSULE PO SCH (08:51)
[2023-11-15] MEDS: POTASSIUM CHLOR 10 MEQ/100 ML 10 MEQ/100 ML BAG IV SCH (15:09)
[2023-11-15] MEDS ORDERED: ZOLEDRONIC ACID 4 MG/5 ML VIAL IV SCH (16:00)
[2023-11-15] MEDS: CHOLECALCIFEROL 25 MCG TABLET PO SCH (16:10)
[2023-11-15] MEDS: CYANOCOBALAMIN 500 MCG TABLET PO SCH (16:11)
--- NOTE | 2023-11-15 17:47 | ADVANCE CARE PLANNING NOTE ---
Advance Care Planning - Planning Encounter Date: 11/15/23 Time: 17:46 Purpose: determine goals of care going forward Parties in Attendance: Patient, Kaylismiley Shay PA-C Decisional Capacity of the Patient: Alert and oriented x3, with insight into her situation - Encounter Subjective/Patient's Story: Layne moved from [place] to [place] earlier in 2023. Her speech is garbled but as I understand that she was in a care facility there and could no longer afford to live there. She therefore needed to move in with her daughter and son-in-law. She states that she is alone much of the time at home. Objective/Medical Story: Layne seems to be having very frequent falls. This is probably after her CVA with her residual left-sided weakness. She has not been able to work with physical therapy since she has been here due to mental status. Currently she has a left humerus fracture, midshaft not requiring operative care, a left wrist fracture which is in a brace. She also has history of a left hip fracture for which she has had hemiarthroplasty. She is hospitalized currently for compression fractures which are age-indeterminate at T7 and T11. She does relate to me that recently she did take a hard fall onto her bottom. Goals of Care: Layne would like to prolong her life by all means possible. Plan: When asked about her CODE STATUS and desires for end-of-life care, Layne would like to remain full code with all possible medical measures taken to prolong her life. Her daughter is active duty in the [employer] and is currently deployed but she would like her daughter Karuna to remain her surrogate decision maker. Her son-in-law Harish lives here in [place] and that is who she has been living with. Code Status: Attempt Resuscitation Time spent on advance care plannin
[2023-11-15] MEDS ORDERED: HALOPERIDOL 5 MG/ML VIAL IVP PRN (17:49)
[2023-11-15] MEDS: ZOLEDRONIC ACID 5 MG/100 ML IV ONE (19:45)
[2023-11-15] MEDS: CALCIUM CARBONATE CHEW 500 MG TABLET PO SCH (20:03)
[2023-11-15] MEDS: QUEtiapine 25 MG TABLET PO SCH (20:03)
[2023-11-16 05:35] LABS: BASOPHILS % (AUTO) 0.4 %; EOSINOPHILS # (AUTO) 0.1 10^3/uL (0.0-0.7); EOSINOPHILS % (AUTO) 0.7 %; HCT - HEMATOCRIT 27.1 % (37.0-47.0); HGB - HEMOGLOBIN 8.5 g/dL (12.0-16.0); MEAN CORPUSCULAR HGB CONC 31.4 g/dL (32.0-36.0); MEAN CORPUSCULAR VOLUME 92.5 fL (81.0-99.0); MEAN PLATELET VOLUME 9.4 fL (7.9-10.8); MONOCYTES % (AUTO) 10.5 %; NEUTROPHILS # (AUTO) 6.7 10^3/uL (1.5-6.6); NEUTROPHILS % (AUTO) 68.1 %; PLT - PLATELET COUNT 390 10^3/uL (130-450); RED BLOOD COUNT 2.93 10^6/uL (4.20-5.40); WHITE BLOOD COUNT 9.9 x10^3/uL (4.8-10.8)
[2023-11-16 05:53] LABS: CALCIUM 9.1 mg/dL (8.5-10.3); CREATININE 0.4 mg/dL (0.6-1.3); POTASSIUM 3.6 mmol/L (3.5-4.5)
[2023-11-16] MEDS: POTASSIUM CHLORIDE 20 MEQ TABLET PO SCH (08:48)
--- NOTE | 2023-11-16 08:49 | PROVIDER PROGRESS NOTE ---
Subjective - Prog Note Date Prog Note Date: 11/16/23 Prog Note Time: 08:44 - Subjective Pt reports feeling: No change Subjective: She continues to have pain in her back. Has left upper extremity pain both in her wrist and upper arm. Current Medications - Current Medications Current Medications: Medications Calcium Carbonate/Glycine (Calcium Carbonate Chew 500 Mg Tablet) 500 mg PO BID [facility] Last Admin: 11/16/23 08:48 Dose: 500 mg Cyanocobalamin (Cyanocobalamin 500 Mcg Tablet) 500 mcg PO DAILY [facility] Last Admin: 11/16/23 08:48 Dose: 500 mcg Heparin Sodium (Porcine) (Heparin 5,000 Unit/Ml Vial) 5,000 unit SUBQ BID [facility] Last Admin: 11/16/23 08:49 Dose: 5,000 unit Morphine Sulfate (Morphine 2 Mg/Ml Carpuject) 2 mg IVP Q4HR PRN PRN Reason: Pain 8 to 10 Last Admin: 11/15/23 00:56 Dose: 2 mg Multivitamins/Minerals (Multivitamin W/Minerals Tablet) 1 tab PO DAILYWM [facility] Ondansetron HCl (Ondansetron Odt 4 Mg Tablet) 4 mg TL Q6HR PRN PRN Reason: Nausea / Vomiting Acetaminophen (Acetaminophen 325 Mg Tablet) 650 mg PO Q4HR PRN PRN Reason: Pain 1 to 4, or Fever Last Admin: 11/15/23 20:03 Dose: 650 mg Baclofen (Baclofen 10 Mg Tablet) 5 mg PO TID PRN PRN Reason: Spasms Last Admin: 11/15/23 17:54 Dose: 5 mg Cholecalciferol (Cholecalciferol 25 Mcg Tablet) 50 mcg PO DAILY [facility] Last Admin: 11/16/23 08:48 Dose: 50 mcg Oxycodone HCl (Oxycodone 5 Mg Tablet) 5 mg PO Q4HR PRN PRN Reason: Pain 5 to 7 Last Admin: 11/16/23 15:27 Dose: 5 mg Polyethylene Glycol (Polyethylene Glycol 3350 17 Gm Packet) 17 gm PO DAILY [facility] Last Admin: 11/16/23 08:50 Dose: 17 gm Potassium Chloride (Potassium Chloride 20 Meq Tablet) 20 meq PO DAILYWM [facility] Last Admin: 11/16/23 08:48 Dose: 20 meq Propranolol HCl (Propranolol 10 Mg Tablet) 20 mg PO BID [facility] Last Admin: 11/16/23 08:48 Dose: 20 mg Quetiapine Fumarate (Quetiapine 25 Mg Tablet) 75 mg PO [facility] Last Admin: 11/15/23 20:03 Dose: 75 mg Ropinirole HCl (Ropinirole 1 Mg Tablet) 1 mg PO BID [facility] Last Admin: 11/16/23 08:48 Dose: 1 mg Venlafaxine HCl (Venlafaxine Er 75 Mg Capsule) 150 mg PO DAILY [facility] Last Admin: 11/16/23 08:50 Dose: 150 mg Objective - Vital Signs/Intake & Output Vital Signs: Vital Signs x48h Temp Pulse Resp BP Pulse Ox 11/16/23 04:25 36.8 C 87 20 144/96 H 93 Intake & Output: Intake & Output 11/13/23 11/14/23 11/15/23 11/16/23 23:59 23:59 23:59 23:59 Intake Total 1208 1710 Output Total 650 2900 200 Balance 558 -1190 -200 - Objective General Appearance: positive: No acute distress Eyes Bilateral: positive: Normal inspection ENT: positive: ENT inspection nml Neck: positive: Nml inspection Respiratory: positive: No respiratory distress Cardiovascular: positive: Regular rate & rhythm Abdomen: positive: No distention Skin: positive: Color nml Extremities: positive: Other (there is edema of the left hand, this is improved from yesterday. we have been removing the splint. she has deficit in this hand, not able to move fingers normally) Neurologic/Psychiatric: positive: Oriented x3, Mood/affect nml - Lab Results Fish Bones: 11/16/23 05:07 11/16/23 05:07 Other Labs: Lab Results x24hrs 11/16/23 11/16/23 11/16/23 Range/Units 05:07 05:07 05:07 WBC 9.9 (4.8-10.8) x10^3/uL RBC 2.93 L (4.20-5.40) 10^6/uL Hgb 8.5 L (12.0-16.0) g/dL Hct 27.1 L (37.0-47.0) % MCV 92.5 (81.0-99.0) fL MCH 29.0 (27.0-31.0) pg MCHC 31.4 L (32.0-36.0) g/dL RDW 15.0 (12.0-15.0) % Plt Count 390 (130-450) 10^3/uL MPV 9.4 (7.9-10.8) fL Neut # (Auto) 6.7 H (1.5-6.6) 10^3/uL Lymph # (Auto) 2.0 (1.5-3.5) 10^3/uL [place] # (Auto) 1.0 (0.0-1.0) 10^3/uL Eos # (Auto) 0.1 (0.0-0.7) 10^3/uL Baso # (Auto) 0.0 (0.0-0.1) 10^3/uL Absolute Nucleated RBC 0.00 x10^3/uL Nucleated RBC % 0.0 /100WBC Sodium (135-145) mmol/L Potassium (3.5-4.5) mmol/L Chloride (101-111) mmol/L Carbon Dioxide (21-32) mmol/L Anion Gap (6-13) BUN (6-20) mg/dL Creatinine (0.6-1.3) mg/dL Estimated GFR (MDRD) (>89) Glucose (74-104) mg/dL Calcium (8.5-10.3) mg/dL Ferritin 13.7 (11.0-306.8) ng/mL Total Intact PTH 54 (12-88) pg/mL 11/16/23 Range/Units 05:07 WBC (4.8-10.8) x10^3/uL RBC (4.20-5.40) 10^6/uL Hgb (12.0-16.0) g/dL Hct (37.0-47.0) % MCV (81.0-99.0) fL MCH (27.0-31.0) pg MCHC (32.0-36.0) g/dL RDW (12.0-15.0) % Plt Count (130-450) 10^3/uL MPV (7.9-10.8) fL Neut # (Auto) (1.5-6.6) 10^3/uL Lymph # (Auto) (1.5-3.5) 10^3/uL [place] # (Auto) (0.0-1.0) 10^3/uL Eos # (Auto) (0.0-0.7) 10^3/uL Baso # (Auto) (0.0-0.1) 10^3/uL Absolute Nucleated RBC x10^3/uL Nucleated RBC % /100WBC Sodium 141 (135-145) mmol/L Potassium 3.6 (3.5-4.5) mmol/L Chloride 104 (101-111) mmol/L Carbon Dioxide 30 (21-32) mmol/L Anion Gap 7.0 (6-13) BUN 14 (6-20) mg/dL Creatinine 0.4 L (0.6-1.3) mg/dL Estimated GFR (MDRD) 162 (>89) Glucose 92 (74-104) mg/dL Calcium 9.1 (8.5-10.3) mg/dL Ferritin (11.0-306.8) ng/mL Total Intact PTH (12-88) pg/mL Assessment/Plan - Problem List (1) Compression fracture of T11 vertebra Impression: discussed with Dr. Flores, orthopedic spine at [facility]. Recommendation was for TLSO bracing then mobilize with PT. After bracing and mobilization patient should get upright x-rays of the thoracic spine to assess for any movement of the fracture. He also recommend the patient follow-up with primary care doctor and local spine surgeon at [address] of the thoracic spine shows T7 and T11 compression fractures of indeterminate age. There are no retropulsed fragments within the canal. Patient appears to have some chronic neurological deficits. She does not have any urinary retention she is not having urinary incontinence. She is urinating into a purewick catheter. She is able to move her lower extremities. She does have back pain which is controlled with medications. She is continuing to require parenteral analgesia. Is she worked with physical and Occupational Therapy this afternoon. She has been up in her brace. (2) Humeral shaft fracture Impression: This does not appear to be an acute fracture. I have reviewed the films going back to May 2023. Humeral fracture has been present since that since that time. There is definitely callus formation seen at the humerus (3) Status post CVA Impression: Review of medical records show that the patient moved here in early 2023. It would seem that she had sustained a left hip fracture and left humeral fracture prior to that time possibly in [place]. She moved here to have more support from her family. It is not clear what the timeframe for her CVA was. CT of the head shows no acute intracranial pathology I do not see any large areas of encephalomalacia upon reviewing the films myself. 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 It appears that she fractured her left wrist and her left humerus in May 2023 per review of records. There are multiple urgent care visits related to falls. (4) Hypokalemia. Initially repleted on admission and back down She has been started on oral potassium. Her potassium level is 3.6 today, within normal limits. (5) Altered mental status Patient seems to be having some sundowning phenomena. She was oversedated with Zyprexa several days ago. We increased Seroquel dosing to 50 mg at bedtime. This seems to be helpful. (6) Mildly underweight adult Impression: BMI is calculated to be 19.8. She is not taking in much of her meals here. She appears quite thin. I question the accuracy of this weight. Disposition: This patient seems to be not thriving at home. She has had multiple falls and multiple urgent care visits related to falls. She has had multiple fractures. That being said, home may be the best place for her. She is living with her family and her son-in-law is her primary caregiver. I had a phone conversation with him today and he seems to be doing the best that he can. We will plan on getting upright thoracic x-rays in the morning and discharging her home tomorrow. This patient's stay is approaching 96 hours at this critical access hospital. She has thoracic compression fractures which are being treated appropriately. There is no need for services beyond what this hospital can provide. They are continuing to improve but due to medical necessity will stay beyond 96 hours.
[2023-11-16] MEDS: polyethylene glycoL 3350 17 GM PACKET PO SCH (08:50)
[2023-11-16] MEDS ORDERED: FERRIC GLUCONATE 125 MG in SODIUM CHLORIDE 0.9% 100ML 100 ML IV ONE (10:56)
[2023-11-16] MEDS: FERRIC GLUCONATE 125 MG in SODIUM CHLORIDE 0.9% 100ML 100 ML IV ONE (11:55)
[2023-11-17] MEDS: MULTIVITAMIN W/MINERALS TABLET PO SCH (08:17)
--- NOTE | 2023-11-17 09:56 | XRAY Report ---
PROCEDURE: Thoracic Spine 2V INDICATIONS: thoracic compression fractures TECHNIQUE: 2 views of the thoracic spine were acquired. COMPARISON: CT thoracic spine 11/14/2023. FINDINGS: Bones: No fractures or dislocations. No suspicious bony lesions. 12 pairs of ribs are noted, and a ppear intact where visualized. Redemonstration of T7 and T11 compression deformities, similar in appe arance compared to prior CT. Demonstration of multilevel degenerative changes of the spine. Soft tissues: No paravertebral stripe thickening. Right upper quadrant surgical clips. Multiple meta llic densities projecting over the lower chest and abdomen. IMPRESSION: Stable appearance of T7 and T11 compression deformities. No new acute abnormalities are identified. Reviewed by: Florentin Coyle MD on 11/17/2023 9:55 AM PDT Approved by: Florentin Coyle MD on 11/17/2023 9:55 AM PDT Station ID: [id number]
--- NOTE | 2023-11-17 12:42 | Discharge Plan ---
Discharge Plan Problem Reviewed?: Yes Disposition: 06 Home Health Service Prescriptions: oxyCODONE [Roxicodone] 5 mg PO Q4HR PRN #10 tab PRN Reason: Pain 5 to 7 Potassium Chloride [K-Dur] 20 meq PO DAILYWM #90 tab Diet: Regular Activity Restrictions: Additional Comments (Wear the brace when you are out of bed. continue to wear the sling on your left arm, and the splint on the left wrist.) Shower Restrictions: No Driving Restrictions: Yes (do not drive) Assistance Devices: Walker Instruction Topics: ED Fx Comp Vertebral Health Concerns: You were admitted to the hospital after you fell at home. Your fall resulted in a fracture to your back. I know that you have had multiple falls and have broken many bones. You need to continue to wear a sling on your left arm to help support your left upper arm as well as wearing the brace on your left wrist. You need to follow- up with orthopedics regarding your left wrist. You also have a brace for your back. You need to wear this brace when you are up and out of bed as it will help your fractures. This was recommended by an outside doctor that we talk to about your back fractures. You need to follow-up with your primary care doctor and have an x-ray of your thoracic spine in 6 weeks, and again in 12 weeks. While you were here in the hospital we gave you a medication for osteoporosis that lasts for 1 year. You need to let a dentist know that you had this medication if you need any dental procedures. This medication is called Reclast. To help this medication work you need to take daily supplements of calcium and vitamin D. Your vitamin D level was low. You can take [id number] supplements for your vitamin D level. The cheapest and easiest way to get supplemental calcium is just to take 2 Tums every day. Additionally your potassium was low. I want you to go on potassium supplements and I have prescribed these. This secondary social studies teacher will be following up with you on Sunday or early this week about home health. The kind of insurance you have makes it very [place] to get [place] health [place] As your medical provider I have spoken with the social workers here at the hospital. When open enrollment happens for Medicaid it seems like a better choice might be a type of insurance called [facility]. This is also a Medicaid plan but [place] health insurance plans generally happen in the fall. I am concerned that you may not be able to get home health services because of the Medicaid plan you are on, and this is unfortunate. There is also a patient advocate here at the hospital. Her name is Delicia Bear and she may be able to give you advice and assistance on what would be the best Medicaid plan to enroll in. She also works with patients for financial assistance. As mentioned above you do need primary care follow-up and x-rays of your back in 6 and 12 weeks. Also, I want you to call your primary care provider's office tomorrow and let them know you have been in the hospital. I will try to make sure that we send a summary of your hospitalization to your primary care provider. She will probably want to order some outpatient labs before you see her in the office. Follow-Up Care: Home Health - PT, Home Health - OT No Smoking: If you smoke, Please STOP! Call for help. Follow-up with: TONNY MEJÍA ARNP [Physician No Access] -
--- NOTE | 2023-11-17 13:41 | DISCHARGE SUMMARY ---
"Discharge Summary Admit Date: 11/13/23 Discharge Date: 11/17/23 Discharging Provider: Kayli Shay PA-C Primary Care Provider: RAKESH Drake Code Status: Attempt Resuscitation Condition at Discharge: Good Discharge Disposition: Home Health Service - DIAGNOSES Admission Diagnoses: T11 compression fracture Left humeral fracture Left wrist fracture Hypertension Status post CVA Discharge Diagnoses with Status of Each Condition: (1) Compression fracture of T11 vertebra Impression: discussed with Dr. lFores, orthopedic spine at [facility]. Recommendation was for TLSO bracing then mobilize with PT. After bracing and mobilization patient should get upright x-rays of the thoracic spine to assess for any movement of the fracture. He also recommend the patient follow-up with primary care doctor and local spine surgeon at [address] of the thoracic spine shows T7 and T11 compression fractures of indeterminate age. There are no retropulsed fragments within the canal. The fractures were stable on upright imaging. Patient appears to have some chronic neurological deficits. She does not have any urinary retention. she is not having urinary incontinence. . She is able to move her lower extremities. She does have back pain which is controlled with medications. she worked with physical and Occupational Therapy. She has been up in her brace. She may not be compliant with bracing on discharge. (2) Humeral shaft fracture Impression: This does not appear to be an acute fracture. I have reviewed the films going back to May 2023. Humeral fracture has been present since that time. There is definitely callus formation seen at the humerus (3) Status post CVA Impression: Review of medical records show that the patient moved here in early 2023. It would seem that she had sustained a left hip fracture and left humeral fracture prior to that time possibly in [place]. She moved here to have more support from her family. It is not clear what the timeframe for her CVA was. CT of the head shows no acute intracranial pathology I do not see any large areas of encephalomalacia upon reviewing the films myself. 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 It appears that she fractured her left wrist and her left humerus in May 2023 per review of records. There are multiple urgent care visits related to falls. (4) Hypokalemia. Initially repleted on admission and back down. She has been started on oral potassium. Her potassium level is 3.6 (5) Altered mental status Had some sundowning at night. then was oversedated with a night time dose of zyrexa. responded well to an increase in her seroquel to 50mg at HS. (6) Mildly underweight adult Impression: BMI is calculated to be 19.8. She is not taking in much of her meals here. She appears quite thin. I question the accuracy of this weight. He family relates to me that she is a picky eater. she is cared for by her son in law who seems quite attentive to her needs. - HPI History of Present Illness: From Telehealth Admission H&P H&P was conducted via video remotely, using Access Cart. [place] in [place]. No one is at bedside. Pt has poor memory. History from pt, staff, chart. 63 yo F with PMH of HTN, CVA, memory deficits presented to the ER with c/o 1 day h/o LBP s/p GLF. [place] Pt has had frequent falls. Last year, she fell and fractured her hip, had ORIF, then went to Rehab. Pt was seen last week after a fall and found to have a fracture L wrist. Pt says that she uses a walker at home. Unclear whether she is still using walker with L wrist fracture. Unclear if she was seen for L Humeral fracture, or not. Last night, she got up to go to the bathroom, fell, and had back pain. Today, she was unable to ambulate d/t LBP. Pt denies F/c, cough, SOB, CP, abdo pain, dysuria, BM or urinary changes. In the ER, LSpine Xray: compression fracture T11 vertebra L Hip Xray: +ORIF; no acute injury L Shoulder Xray: healing mid-humeral fracture CT Head: NAD No labs done. Pt was given [place] in the ER. ER Provider [facility] [place] Dr. Borden and she recommends sling she does not consult on spine fractures and notes she did not take call at our hospital. - CONSULTS | PROCEDURES Consultations: [facility] ortho spine, telephone consult. - HOSPITAL COURSE Hospital Course: Admitted after back pain after a fall with a thoracic compression fracture at T7 and T11 of indeterminate age. No acute neurological deficits but did have a significant degree of back pain. She has had multiple falls at home. She is status post a CVA with some residual left-sided weakness. Was hypokalemic on admission this was repleted and did resolve. She had some altered mental status with sundowning. She takes Seroquel 25 mg at bedtime at home this was increased to 50 mg it was quite effective. Although she is not thriving at home this is probably the best situation for her. I had a discussion with her son-in-law who is her primary caregiver. He seems attentive to her needs and is doing the best he can to meet them. She is discharged home in stable condition. - ALLERGIES Allergies/Adverse Reactions: Allergies Allergy/AdvReac Type Severity Reaction Status Date / Time No Known Drug Allergies Allergy Verified 11/13/23 15:19 - MEDICATIONS Home Medications: Ambulatory Orders Medication Instructions Recorded Confirmed Baclofen 5 mg PO TID PRN 11/14/23 11/14/23 Celecoxib [CeleBREX] 100 mg PO BID 11/14/23 11/14/23 Propranolol HCl 20 mg PO BID 11/14/23 11/14/23 QUEtiapine [SEROquel] 50 mg PO HS 11/14/23 11/14/23 Venlafaxine ER [Effexor ER] 150 mg PO DAILY 11/14/23 11/14/23 rOPINIRole [Requip] 1 mg PO BID 11/14/23 11/14/23 Acetaminophen [Tylenol] 650 mg PO Q4HR PRN tab 11/17/23 Calcium Carbonate [Tums (Calcium 500 mg PO BID tab 11/17/23 Carbonate 500mg)] Cholecalciferol [Vitamin D3] 50 mcg PO DAILY tab 11/17/23 Cyanocobalamin [Vitamin B-12] 500 mcg PO DAILY tab 11/17/23 Multivitamin W/Minerals [Theragran 1 tab PO DAILYWM tab 11/17/23 M] Potassium Chloride [K-Dur] 20 meq PO DAILYWM #90 tab 11/17/23 oxyCODONE [Roxicodone] 5 mg PO Q4HR PRN #10 tab 11/17/23 - LABS Result Diagrams: 11/16/23 05:07 11/16/23 05:07 - QUALITY (Female Hip Fx Only) Was patient sent home on osteoporosis medication?: Yes (Thoracic compression fractures, recen hx multiple fractures) - TIME SPENT Time Spent in Discharge (Minutes): 45"
[2023-11-17 16:10] VITALS: BP 119/71; O2SAT 94
== END 2023-11-17 16:40 | disposition home health service (06) ==
LOC: ED 15:08 → MS2 20:03
PROVIDERS: ADMIT Internal Medicine; ATTEND Internal Medicine
DX: S22.080A Wedge compression fracture of T11-T12 vertebra, initial encounter for closed fracture (principal); S22.060A Wedge compression fracture of T7-T8 vertebra, initial encounter for closed fracture; W19.XXXA Unspecified fall, initial encounter; S42.302D Unspecified fracture of shaft of humerus, left arm, subsequent encounter for fracture with routine healing; S52.502D Unspecified fracture of the lower end of left radius, subsequent encounter for closed fracture with routine healing; X58.XXXD Exposure to other specified factors, subsequent encounter; M24.542 Contracture, left hand; R29.898 Other symptoms and signs involving the musculoskeletal system; I10 Essential (primary) hypertension; E87.6 Hypokalemia; F05 Delirium due to known physiological condition; R63.6 Underweight; F03.92 Unspecified dementia, unspecified severity, with psychotic disturbance; Z68.1 Body mass index [BMI] 19.9 or less, adult; Z86.73 Personal history of transient ischemic attack (TIA), and cerebral infarction without residual deficits
CPT/HCPCS: 36415; 51701; 70450; 72070; 72100; 72128; 72220; 73030; 73502; 80048; 80053; 81001; 82306; 82607; 82728; 82746; 83540; 83970; 84466; 85025; 96365; 96367; 96372; 96375; 96376; 97163; 97167; 99285; A9270; G0378; J2916; J3489; 87086

== ENCOUNTER 2023-12-05 22:10 | Outpatient (CLI) | payer MEDICAID | END 2023-12-05 22:11 | disposition E | LOC: EMS 22:10 | DX: I46.9 Cardiac arrest, cause unspecified (principal) | CPT/HCPCS: A0426; A0998 ==